=== PATIENT | female | born 1985 | race Caucasian/White ===

== ENCOUNTER 2017-12-28 01:59 | Observation (INO) | payer BC ==
[2017-12-28] MEDS ORDERED: ONDANSETRON 4 MG/2 ML VIAL ONE ×2 (02:40→11:29)
[2017-12-28] MEDS ORDERED: KETOROLAC 30 MG/ML INJ ONE (02:40)
[2017-12-28 03:11] LABS: Absolute Lymphocytes (CBC) 1.8 K/uL (0.7-4.9); Absolute Monocytes 0.6 K/uL (0.1-1.3); Absolute Neutrophil 9.3 K/uL (1.8-8.0); Basophils % 0.4 % (0-1.3); Eosinophils % 0.2 % (0-4.4); Hematocrit 42.6 % (36.0-45.0); Lymphocytes % 15.3 % (15.3-44.8); MCH 27.4 pg (27.0-35.0); MPV 9.5 fL (7.6-11.3); Monocytes % 4.8 % (3.3-12.3); RBC Red Blood Cell Count 5.25 M/uL (3.86-4.86)
[2017-12-28 03:20] LABS: Albumin 3.8 g/dL (3.4-5.0); Bilirubin Direct 0.1 mg/dL (0-0.2); Bilirubin Total 0.4 mg/dL (0.2-1.0); Potassium 3.5 mmol/L (3.5-5.1); Protein, Total 8.1 g/dL (6.4-8.2)
[2017-12-28 03:44] LABS: Urine Color RED
[2017-12-28 03:45] LABS: Urine Appearance TURBID; Urine Glucose NEGATIVE (NEG); Urine Specific Gravity >1.030 (1.005-1.030)
[2017-12-28 03:46] LABS: Urine Bilirubin NEGATIVE (NEG)
[2017-12-28 03:47] LABS: Urine Blood 3+ (NEG); Urine Protein 3+ (NEG); Urine Urobilinogen 0.2 mg/dL (0.2-1.0)
[2017-12-28 03:50] LABS: Urine Bacteria >50 /HPF (<20); Urine Culture Reflex Order REFLEXED; Urine RBC TNTC /HPF (NONE SEEN)
--- NOTE | 2017-12-28 04:56 | ER ---
Nurse's Notes [facility] Name: Tonya Dorantes Age: 32 yrs Sex: Female : 1985 Arrival Date: 12/28/2017 Time: 02:04 Bed 17 Private MD: Diagnosis: 11 mm by 2 mm obstructive ureteral stone Presentation: 12/28 02:20 Presenting complaint: Patient states: she has history of kidney stones and is having bb similar symptoms which started last night after dinner, pt has low back pain radiating to right lower abdomen and vomiting. Transition of care: patient was not received from another setting of care. Onset of symptoms was December 27, 2017. Risk Assessment: Do you want to hurt yourself or someone else? Patient reports no desire to harm self or others. Initial Sepsis Screen: Does the patient meet any 2 criteria? No. Patient's initial sepsis screen is negative. Does the patient have a suspected source of infection? No. Patient's initial sepsis screen is negative. Care prior to arrival: None. 02:20 Method Of Arrival: Ambulatory bb 02:20 Acuity: JORGE 3 bb Triage Assessment: 02:30 General: Appears in no apparent distress. uncomfortable, obese, Behavior is bp cooperative, appropriate for age, anxious. GI: Reports vomiting, FLANK PAIN. 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 - Social history:: Smoking status: Patient/guardian denies using tobacco, Patient uses alcohol, but reports only rare drinking. Patient/guardian denies using street drugs. - Ebola Screening: : No symptoms or risks identified at this time. Screenin:23 Abuse screen: Denies threats or abuse. Nutritional screening: No deficits noted. bb Tuberculosis screening: No symptoms or risk factors identified. Fall Risk None identified. Assessment: 02:30 General: Appears in no apparent distress. comfortable, obese, Behavior is cooperative, bp appropriate for age, anxious. Pain: Pain: Complains of pain in posterior aspect of right lateral abdomen. 02:53 Neuro: Level of Consciousness is awake, alert, obeys commands, Oriented to person, bp place, time, situation, Appropriate for age. Cardiovascular: No deficits noted. Respiratory: Airway is patent Respiratory effort is even, unlabored, Respiratory pattern is regular, symmetrical. GI: Abdomen is non-distended. : No signs and/or symptoms were reported regarding the genitourinary system. EENT: No deficits noted. Derm: No deficits noted. Musculoskeletal: Circulation, motion, and sensation intact. Range of motion: intact in all extremities. 03:20 Reassessment: PT RETURNED FROM CT. bp 05:06 Reassessment: ADMIT IN PROCESS, VS STABLE ON MONITOR. bp Vital Signs: 02:22 BP 137 / 97; Pulse 65; Resp 18 S; Pulse Ox 97% on R/A; Weight 90.72 kg (R); Height 5 bb ft. 0 in. (152.40 cm) (R); Pain 9/10; 03:44 BP 131 / 84; Pulse 86; Resp 14; Pulse Ox 97% ; bp 05:06 BP 125 / 84; Pulse 74; Resp 14; Pulse Ox 97% ; bp 02:22 Body Mass Index 39.06 (90.72 kg, 152.40 cm) bb ED Course: 02:04 Patient arrived in ED. es 02:15 Inserted saline lock: 20 gauge in right antecubital area, using aseptic technique. bb Blood collected. 02:21 Triage completed. bb 02:22 Arm band placed on Patient placed in an exam room, on a stretcher, on pulse oximetry. bb Family accompanied patient. 02:23 Patient has correct armband on for positive identification. Placed in gown. Bed in low bb position. Call light in reach. Side rails up X 1. Adult w/ patient. Pulse ox on. NIBP on. 02:33 Kd Spring MD is Attending Physician. wa 02:39 Noam Don, JUAN is Primary Nurse. bp 03:22 Stone Protocol In Process Unspecified. EDMS 04:55 Karen Damian MD is Hospitalizing Provider. wa 05:33 No provider procedures requiring assistance completed. Patient admitted, IV remains in bp place. Administered Medications: 02:43 Drug: TORadol 30 mg Route: IVP; Site: right antecubital; bb 03:06 Follow up: Response: No adverse reaction bp 02:43 Drug: Zofran 4 mg Route: IVP; Site: right antecubital; bb 03:06 Follow up: Response: No adverse reaction; Pain is decreased bp 05:05 Drug: fentaNYL (PF) 50 mcg Route: IVP; Site: right antecubital; bp 05:06 Follow up: Response: No adverse reaction; Pain is decreased bp Outcome: 04:55 Decision to Hospitalize by Provider. thompson 05:34 Condition: stable bp 05:34 Instructed on the need for admit. 05:58 Admitted to Med/surg accompanied by tech, family with patient, via wheelchair, room bp 224, with chart, Report called to JAIME MARTINEZ 06:07 Patient left the ED. jd3 Signatures: Dispatcher [employer] EDTierra Malcolm Brenda, RN RN bb Kd Spring MD MD wa Davies, Jonathon, RN RN jd3 Noam Don RN RN bp Corrections: (The following items were deleted from the chart) 02:53 02:30 Pain: bp bp
--- NOTE | 2017-12-28 04:56 | EDPHYS ---
Physician Documentation [facility] Name: Tonya Dorantes Age: 32 yrs Sex: Female : 1985 Arrival Date: 12/28/2017 Time: 02:04 Bed 17 Private MD: ED Physician Kd Spring HPI: 12/28 03:19 This 32 yrs old Female presents to ER via Ambulatory with complaints of wa Vomiting, Possible Kidney Stone. 03:19 The patient presents to the emergency department with vomiting, that is continuous, wa abdominal pain, of the Right flank, described as sharp, and radiates to the R groin. Onset: The symptoms/episode began/occurred today. Possible causes: kidney stones. h/o kidney stones. The symptoms are aggravated by nothing. The symptoms are alleviated by nothing. Associated signs and symptoms: Pertinent positives: abdominal pain, nausea, vomiting, Pertinent negatives: diarrhea, dysuria, fever. Severity of symptoms: At their worst the symptoms were moderate in the emergency department the symptoms are worse moderately. The patient has experienced similar episodes in the past, a few times, h/o kidney stones. The patient has not recently seen a physician. 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 - Social history:: Smoking status: Patient/guardian denies using tobacco, Patient uses alcohol, but reports only rare drinking. Patient/guardian denies using street drugs. - Ebola Screening: : No symptoms or risks identified at this time. ROS: 03:24 Constitutional: Negative for fever, chills, and weight loss, Eyes: Negative for injury, wa pain, redness, and discharge, ENT: Negative for injury, pain, and discharge, Neck: Negative for injury, pain, and swelling, Cardiovascular: Negative for chest pain, palpitations, and edema, Respiratory: Negative for shortness of breath, cough, wheezing, and pleuritic chest pain, MS/Extremity: Negative for injury and deformity, Skin: Negative for injury, rash, and discoloration, Neuro: Negative for headache, weakness, numbness, tingling, and seizure. 03:24 Abdomen/GI: Positive for nausea, vomiting, R flank pain, Negative for 03:24 Back: Positive for flank pain, on the right. 03:24 : Positive for hematuria. 03:24 All other systems are negative. Exam: 03:24 Constitutional: This is a well developed, well nourished patient who is awake, alert, wa and in no acute distress. ENT: Nares patent. No nasal discharge, no septal abnormalities noted. Tympanic membranes are normal and external auditory canals are clear. Oropharynx with no redness, swelling, or masses, exudates, or evidence of obstruction, uvula midline. Mucous membranes moist. Neck: Trachea midline, no thyromegaly or masses palpated, and no cervical lymphadenopathy. Supple, full range of motion without nuchal rigidity, or vertebral point tenderness. No Meningismus. Chest/axilla: Normal chest wall appearance and motion. Nontender with no deformity. No lesions are appreciated. Cardiovascular: Regular rate and rhythm with a normal S1 and S2. No gallops, murmurs, or rubs. Normal PMI, no JVD. No pulse deficits. Respiratory: Lungs have equal breath sounds bilaterally, clear to auscultation and percussion. No rales, rhonchi or wheezes noted. No increased work of breathing, no retractions or nasal flaring. Abdomen/GI: Soft, non-tender, with normal bowel sounds. No distension or tympany. No guarding or rebound. No evidence of tenderness throughout. Back: No spinal tenderness. No costovertebral tenderness. Full range of motion. Skin: Warm, dry with normal turgor. Normal color with no rashes, no lesions, and no evidence of cellulitis. MS/ Extremity: Pulses equal, no cyanosis. Neurovascular intact. Full, normal range of motion. Neuro: Awake and alert, GCS 15, oriented to person, place, time, and situation. Cranial nerves II-XII grossly intact. Motor strength 5/5 in all extremities. Sensory grossly intact. Cerebellar exam normal. Normal gait. Psych: Awake, alert, with orientation to person, place and time. Behavior, mood, and affect are within normal limits. 03:24 Constitutional: The patient appears in no acute distress, alert, obese, in obvious distress, mildly distressed, actively vomiting. Vital Signs: 02:22 BP 137 / 97; Pulse 65; Resp 18 S; Pulse Ox 97% on R/A; Weight 90.72 kg (R); Height 5 bb ft. 0 in. (152.40 cm) (R); Pain 9/10; 03:44 BP 131 / 84; Pulse 86; Resp 14; Pulse Ox 97% ; bp 05:06 BP 125 / 84; Pulse 74; Resp 14; Pulse Ox 97% ; bp 02:22 Body Mass Index 39.06 (90.72 kg, 152.40 cm) bb MDM: 02:33 Patient medically screened. wa 03:26 Differential diagnosis: suspect acute ureterolithiasis. check will eval and treat. wa 04:47 Data reviewed: vital signs, nurses notes, lab test result(s), radiologic studies. Test sc interpretation: by ED physician or midlevel provider: labs noted for RBCs in UA. CT noted for 11 mm by 2 mm obstructive stone R ureter with assoc hydro. Response to treatment: the patient's symptoms have mildly improved after treatment. Physician consultation:. 04:53 ED course: spoke with with Dr. Shah. advised admit. NPO.. sc 12/28 02:33 Order name: Basic Metabolic Panel; Complete Time: 04:35 sc 12/28 02:33 Order name: CBC with Diff; Complete Time: 04:35 sc 12/28 02:33 Order name: Hepatic Function; Complete Time: 04:35 sc 12/28 02:33 Order name: Lipase; Complete Time: 04:35 sc 12/28 03:05 Order name: Urine --Ancillary (enter results); Complete Time: 04:36 bp 12/28 03:07 Order name: Stone Protocol [facility] 12/28 03:10 Order name: Urinalysis W/Microscopic; Complete Time: 04:35 [facility] 12/28 03:51 Order name: Urine Culture [facility] 12/28 02:33 Order name: Urine Test (obtain specimen); Complete Time: 03:05 sc 12/28 02:33 Order name: IV Saline Lock; Complete Time: 02:41 sc 12/28 02:33 Order name: Labs collected and sent; Complete Time: 02:41 sc Administered Medications: 02:43 Drug: TORadol 30 mg Route: IVP; Site: right antecubital; bb 03:06 Follow up: Response: No adverse reaction bp 02:43 Drug: Zofran 4 mg Route: IVP; Site: right antecubital; bb 03:06 Follow up: Response: No adverse reaction; Pain is decreased bp 05:05 Drug: fentaNYL (PF) 50 mcg Route: IVP; Site: right antecubital; bp 05:06 Follow up: Response: No adverse reaction; Pain is decreased bp Disposition: 12/28/17 04:55 Hospitalization ordered by Karen Damian for Observation. Preliminary diagnosis is 11 mm by 2 mm obstructive ureteral stone. - Bed requested for Telemetry/MedSurg (observation). - Status is Observation. jd3 - Condition is Stable. - Problem is new. - Symptoms have improved. UTI on Admission? No Signatures: Dispatcher [employer] EDMS Janett Carrasco RN RN mw Ballard, Brenda, RN RN bb Appiah, William, MD MD wa Davies, Jonathon, RN RN jd3 Peltier, Brian, RN RN bp Corrections: (The following items were deleted from the chart) 02:59 02:33 Urine Dipstick-Ancillary ordered. sc bp 03:07 02:35 Abdomen Pelvis Wo Con+CT.RAD.BRZ ordered. EDKS EDMS 03:10 02:34 UA MICROSCOPIC+U.LAB.BRZ ordered. EDMS EDMS 03:10 02:59 URINALYSIS+U.LAB.BRZ ordered. EDKS EDMS 05:19 04:55 Hospitalization Ordered by Karen Damian MD for Observation. Preliminary mw diagnosis is 11 mm by 2 mm obstructive ureteral stone. Bed requested for Telemetry/MedSurg (observation). Status is Observation. Condition is Stable. Problem is new. Symptoms have improved. UTI on Admission? No. sc 06:07 05:19 12/28/2017 04:55 Hospitalization Ordered by Karen Damian MD for Observation. jd3 Preliminary diagnosis is 11 mm by 2 mm obstructive ureteral stone. Bed requested for Telemetry/MedSurg (observation). Status is Observation. Condition is Stable. Problem is new. Symptoms have improved. UTI on Admission? No. mw
[2017-12-28] MEDS ORDERED: FENTANYL CITR 100 MCG/2 ML ONE ×2 (05:07→11:35)
[2017-12-28] MEDS ORDERED: HYDROMORPHONE HCL 1 MG/ML INJ IV PRN (05:15)
[2017-12-28] MEDS ORDERED: ACETAMINOPHEN 500 MG TAB PO PRN (05:15)
[2017-12-28] MEDS ORDERED: ONDANSETRON 4 MG/2 ML VIAL IV PRN (05:15)
[2017-12-28] MEDS ORDERED: MAGNESIUM HYDROXIDE 8% 30 ML PO PRN (05:15)
[2017-12-28] MEDS ORDERED: NA CHLORIDE 0.9% 1,000 ML IV SCH (06:00)
--- NOTE | 2017-12-28 08:32 | P.HP ---
Certification for Inpatient Patient admitted to: Observation With expected LOS: <2 Midnights Patient will require the following post-hospital care: None Practitioner: I am a practitioner with admitting privileges, knowledge of patient current condition, hospital course, and medical plan of care. Services: Services provided to patient in accordance with Admission requirements found in Title 42 Section 412.3 of the Code of Federal Regulations Patient History Date of Service: 12/28/17 Reason for admission: Right sided obstructive uropathy History of Present Illness: Patient is a 32-year-old female came to the hospital with right-sided nephrolithiasis. Pain was mainly in the right flank region. She has a history of nephrolithiasis. She has had to have lithotripsy with stone extraction in the past. She came in with severe pain in her workup revealed that she had a stone in the right ureter. It was 11mm by 2mm. Urology was notified and plan is to go to the OR today for stone extraction. Patient will be kept NPO and will continue with pain control and IV hydration along with IV antibiotics. Allergies meperidine [From Demerol] Allergy (Verified 12/28/17 07:02) Anaphylaxis - Past Medical/Surgical History Has patient received pneumonia vaccine in the past: No Diabetic: No -: kidney stones -: Lithotripsy - Family History Father Medical History: Hypertension, Kidney disease, Other (see notes) Notes: kidney stones Mother Notes: no medical issues - Social History Smoking Status: Never smoker Alcohol use: Yes CD- Drugs: No Caffeine use: Yes Place of Residence: Home Review of Systems 10-point ROS is otherwise unremarkable Physical Examination - Vital Signs Temperature: 98.9 F Blood Pressure: 125/84 Pulse: 74 Respirations: 14 Pulse Ox (%): 96 - Physical Exam General: Alert, In no apparent distress, Oriented x3 HEENT: Atraumatic, PERRLA, Mucous membr. moist/pink, EOMI, Sclerae nonicteric Neck: Supple, 2+ carotid pulse no bruit, No LAD, Without JVD or thyroid abnormality Respiratory: Clear to auscultation bilaterally, Normal air movement Cardiovascular: Regular rate/rhythm, Normal S1 S2, No murmurs Gastrointestinal: Normal bowel sounds, Soft and benign, Non-distended, No rebound, No guarding, Tenderness (Along the flank region) Musculoskeletal: No clubbing, No swelling, No tenderness Integumentary: No rashes Neurological: Normal gait, Normal speech, Normal strength at 5/5 x4 extr, Normal tone, Sensation intact, Cranial nerves 3-12 intact, Normal affect Lymphatics: No axilla or inguinal lymphadenopathy - Studies Laboratory Data (last 24 hrs) 12/28/17 02:15: WBC 11.8 H, Hgb 14.4, Hct 42.6, Plt Count 296 12/28/17 02:15: Sodium 136, Potassium 3.5, BUN 14, Creatinine 0.90, Glucose 138 H, Total Bilirubin 0.4, AST 17, ALT 28, Alkaline Phosphatase 94, Lipase 116 Assessment & Plan - Problems (Diagnosis) (1) Nephrolithiasis Current Visit: Yes Status: Acute (2) Calcium nephrolithiasis Current Visit: Yes Status: Acute (3) Obstructive uropathy Current Visit: Yes Status: Acute - Plan Plan: 1. Continue with IV hydration 2. Continue with IV antibiotics 3. Continue with pain control 4. NPO 5. Urology consultation; cystoscopy in am 6. GI and DVT prophylaxis Discharge Plan: Home Plan to discharge in: 24 Hours - Advance Directives Does patient have a Living Will: No Does patient have a Durable POA for Healthcare: No - Code Status/Comfort Care Code Status Assessed: Yes Code Status: Full Code Critical Care: No Time Spent Managing PTS Care (In Minutes): 45
[2017-12-28] MEDS ORDERED: CEFTRIAXONE/SWI 1gm 1 GM/10 ML SYR IV SCH (09:00)
--- NOTE | 2017-12-28 09:01 | RAD REPORT ---
EXAM DESCRIPTION: CT - Stone Protocol - 12/28/2017 6:55 am CLINICAL HISTORY: Flank pain. R flank pain COMPARISON: None TECHNIQUE: Axial images were obtained without oral or IV contrast. Lack of contrast limits solid org an and vascular assessment. The [id number] spans the entirety of the system partially obscuring uppermost abdomen and lung bases. Coronal reformatted images were obtained and reviewed. All CT scans are performed using dose optimization technique as appropriate and may include automated exposure control or mA/KV adjustment according to patient size. FINDINGS: The lower lung arvizu are clear. Moderate hiatal hernia. Imaged portions of the liver and spleen show no suspicious findings on non-contrast imaging. The panc reas and adrenal glands are normal. No pathologic lymphadenopathy in the abdomen or pelvis. 11 x 2 mm calcification in the right lower ureter as it traverses the right iliac vessel noted. This results in mild right-sided hydronephrosis. Additional punctate bilateral nephrolithiasis. No bowel obstruction, free air, free fluid or abscess. The appendix is not identified as a discrete s tructure, however, no secondary findings of appendicitis are identified. No significant bony abnormality. IMPRESSION: 11 x 2 mm calculus or collection of small calculi in the right ureter as it traverses th e right iliac vessel is noted. Mild right hydronephrosis. Additional punctate bilateral nephrolithiasis.
[2017-12-28] MEDS ORDERED: Ringers Lactate 1,000 ML IV ONE (11:25)
[2017-12-28] MEDS ORDERED: MIDAZOLAM HCL 2 MG/2 ML INJ ONE (11:31)
[2017-12-28] MEDS ORDERED: DEXAMETHASONE 10 MG/ML VIAL ONE (11:35)
[2017-12-28] MEDS ORDERED: PROPOFOL 200 MG/20 ML VIAL IV ONE ×2 (11:35→11:46)
[2017-12-28] MEDS ORDERED: GENTAMICIN 100 MG/100 ML BAG 100 MG/100 ML BAG IV ONE (11:36)
[2017-12-28] MEDS ORDERED: Mastisol Adhesive Liq ONE (11:53)
--- NOTE | 2017-12-28 12:36 | RAD REPORT ---
EXAM DESCRIPTION: RAD - Urethrocystogrphy Retrograde - 12/28/2017 12:04 pm CLINICAL HISTORY: STENT Flank pain COMPARISON: No comparisons FINDINGS: Fluoroscopic imaging of the abdomen is submitted as part of stent placement procedure. Det ails of the procedure are not available. Total fluoro time: 39 seconds.
--- NOTE | 2017-12-28 13:17 | CON ---
History Of Present Illness: A 32-year-old female presenting with right flank pain to the emergency r oom with nausea and vomiting. CT scan revealed an 11 mm x 2 mm long stone in the right mid ureter ov er the pelvic bone. Her pain is not well controlled. She is going to stay for cystoscopy and right stent placement. Allergies: DEMEROL. HER LAST MENSTRUAL PERIOD 12/13/2017. Home Medications: None. Past Medical History: Kidney stone and lithotripsy. Immunizations: Up to date home. Review of Systems: A 10-point review of systems essentially all normal. Physical Examination: VITAL SIGNS: Stable. BP 137/97, pulse 65, sats 97%. She weighs 90.7 kg. Her height is 5 feet 0 in ches. HEENT: Atraumatic, normocephalic. Chest: Clear. Heart: S1, S2. Abdomen: Soft, nontender. Extremities: Normal range of motion. Her CT scan revealed 11 mm stone by 2 mm in the right mid ureter over the pelvic bone. Laboratory Data: White count 11.8, H and H is 14.4, hematocrit 42.6, platelet count 296. Chemistry; sodium 136, potassium 3.5, chloride 104, carbon dioxide 25, BUN 14, creatinine 0.9, GFR 73. Glucose 138. calcium 8.9, direct bilirubin is normal. LFTs normal. Her urine shows a specific gravity 1.0 30, blood 3+, nitrite negative, leukocyte esterase negative, urine bacteria greater than 50. There i s Urine culture pending. Assessment: An 11 mm stone by 2 mm stone in the right mid ureter, pain uncontrollable. Plan: Plan is to do cystoscopy, right stent placement. All the general information, alternatives, a nd risks were reviewed. The patient wishes to proceed. PB/MODL Voice ID: [id number] Report ID: [id number]
== END 2017-12-28 16:36 | disposition home or self-care (01) ==
LOC: ER 01:59 → ERHOLD 04:57 → 2ND 05:30
PROVIDERS: ADMIT Hospitalist; ATTEND Hospitalist
PROC: 0T768DZ Dilation of Right Ureter with Intraluminal Device, Via Natural or Artificial Opening Endoscopic (ICD-10-PCS; principal; 2017-12-28 11:00)
DX: N20.1 Calculus of ureter (principal); Z87.442 Personal history of urinary calculi
CPT/HCPCS: 36415; 51610; 74176; 74450; 76377; 80048; 80076; 81001; 81025; 83690; 85025; 87086; 87088; 96374; 96375; 99285; G0378; J0696; J1100; J1170; J1580; J2250; J2405; J3010